=== PATIENT | male | born 1975 | race Caucasian/White ===

== ENCOUNTER 2020-05-07 16:06 | Emergency (ER) | payer BC, OTHER ==
[~2020-05-07] VITALS: Ht 177.8 cm; Wt 97.5 kg
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
--- NOTE | 2020-05-07 16:41 | NUR ---
EFFICIENCY MANAGER AT BEDSIDE FOR WOUND CLEANING
[2020-05-07] MEDS ORDERED: LIDOCAINE 0.5%-EPI 1:200,000 50 ML VIAL ONE (16:48)
[2020-05-07] MEDS ORDERED: TDAP [DIPH/PERTUSSIS/TET] 0.5 ML VIAL IM ONE ×2 (17:30→17:42)
--- NOTE | 2020-05-07 17:40 | NUR ---
WOUND CARE PROVIDED. FINGER SPLINT TO AFFECTED FINGER.
--- NOTE | 2020-05-07 17:46 | NUR ---
Patient discharged to home in stable condition. Written and verbal after care instructions given. Patient verbalizes understanding of instruction.
[2020-05-07 17:47] VITALS: BP 127/81
== END 2020-05-07 17:48 | disposition home or self-care (01) ==
LOC: ER 16:09
DX: S61.210A Laceration without foreign body of right index finger without damage to nail, initial encounter (principal); Z88.0 Allergy status to penicillin; Z88.1 Allergy status to other antibiotic agents; W26.0XXA Contact with knife, initial encounter; Y93.G1 Activity, food preparation and clean up; Y92.89 Other specified places as the place of occurrence of the external cause; Y99.8 Other external cause status
CPT/HCPCS: 12001; 90471; 90715; 99283; A6403 ×2; J3490